=== PATIENT | female | born 1955 | race Asian ===

== ENCOUNTER 2022-03-03 10:27 | Emergency (ER) | payer MEDICARE, OTHER ==
[~2022-03-03] VITALS: Ht 165.1 cm; Wt 74.0 kg
[2022-03-03] MEDS ORDERED: PERTUSS(ACELL),DIPH,TET VAC/PF 0.5 ML SYRINGE IM. ONE (12:00)
[2022-03-03] MEDS ORDERED: LIDOCAINE 1% 10 ML VIAL SQ ONE (12:00)
[2022-03-03] MEDS ORDERED: BACITRACIN 0.9 GM PACKET OINTMENT TP ONE (12:00)
[2022-03-03] MEDS ORDERED: CEPH-558 PO (12:24)
[2022-03-03] MEDS ORDERED: ACET-66 PO (12:24)
[2022-03-03 12:37] VITALS: BP 153/84
== END 2022-03-03 12:48 | disposition home or self-care (01) ==
LOC: EMS 10:32
DX: S61.511A Laceration without foreign body of right wrist, initial encounter (principal); J45.909 Unspecified asthma, uncomplicated; E11.9 Type 2 diabetes mellitus without complications; I10 Essential (primary) hypertension; W45.8XXA Other foreign body or object entering through skin, initial encounter; Y93.89 Activity, other specified; Y92.89 Other specified places as the place of occurrence of the external cause; Y99.8 Other external cause status
CPT/HCPCS: 99283; 90715; 90471; 12001; J3490

== ENCOUNTER 2024-11-06 07:41 | Emergency (ER) | payer MEDICARE, OTHER ==
[~2024-11-06] VITALS: Ht 154.9 cm; Wt 75.0 kg
[~2024-11-06 07:41] MED LIST: ASPI-1444 PO; ATOR20TA65 PO; CARV3 PO; LEVO-72 PO; METF-445 PO; TRIA15CR49 TP
[2024-11-06] MEDS ORDERED: ASPI-1450 PO (07:49)
[2024-11-06] MEDS ORDERED: PYRI-14 PO (07:49)
[2024-11-06] MEDS ORDERED: ISON300T89 PO (07:49)
[2024-11-06] MEDS ORDERED: RIFA300C62 PO (07:49)
[2024-11-06 07:50] VITALS: TEMP 98
[2024-11-06] MEDS ORDERED: ROSU10TA72 PO (07:55)
[2024-11-06] MEDS ORDERED: DAPA10TA PO (07:55)
[2024-11-06] MEDS: PERTUSS(ACELL),DIPH,TET/PF 0.5 ML SYRINGE [ADULT] IM. ONE (09:20)
[2024-11-06 14:18] VITALS: BP 133/86; PULSE 65; RESP 18; O2SAT 99
== END 2024-11-06 14:20 | disposition home or self-care (01) ==
LOC: EMS 07:57
DX: S05.12XA Contusion of eyeball and orbital tissues, left eye, initial encounter (principal); S09.90XA Unspecified injury of head, initial encounter; E11.9 Type 2 diabetes mellitus without complications; I10 Essential (primary) hypertension; J45.909 Unspecified asthma, uncomplicated; Z88.7 Allergy status to serum and vaccine; Z86.73 Personal history of transient ischemic attack (TIA), and cerebral infarction without residual deficits; Z79.82 Long term (current) use of aspirin; Z79.899 Other long term (current) drug therapy; W10.9XXA Fall (on) (from) unspecified stairs and steps, initial encounter; Y93.89 Activity, other specified; Y92.89 Other specified places as the place of occurrence of the external cause; Y99.9 Unspecified external cause status
CPT/HCPCS: 70450; 82962; 90715; 99284